=== PATIENT | female | born 1985 | race African-American/Black ===

== ENCOUNTER → 2020-11-24 | Outpatient (CLI) | payer MEDICAID ==
[2015-11-13 15:35] VITALS: BP 103/65
[~2020-11-24] MED LIST: DOCU-109 PO; FLUT100D2 IH; FLUT9.9S NS; LEVO75TA5 PO; NAPR-514 PO; OMEP40CA45 PO; OXYC1TAB19 PO
--- NOTE | 2020-11-24 16:03 | RAD ---
EXAM: Pelvic sonogram. HISTORY: Right ovarian cyst. TECHNIQUE: Sonographic imaging of the pelvis was performed. COMPARISON: None. FINDINGS: The exam is limited due to patient body habitus. The uterus is surgically absent. The left ovary is not seen. No left adnexal mass or cyst is seen. The right ovary is normal in size and demons trates normal blood flow. No pelvic free fluid is seen. IMPRESSION: 1. Limited exam due to patient body habitus. 2. Surgically absent uterus and nonvisualization of the left ovary. 3. Unremarkable right ovary. Electronically signed by: Sravani Guido MD (11/24/2020 4:00 PM) [id number]
== END ==
LOC: US 09:19
PROVIDERS: ATTEND Obstetrics & Gynecology
DX: N83.291 Other ovarian cyst, right side (principal); Z90.710 Acquired absence of both cervix and uterus
CPT/HCPCS: 76856

== ENCOUNTER 2020-12-25 22:01 | Emergency (ER) | payer MEDICAID ==
[~2020-12-25] VITALS: Ht 167.6 cm; Wt 133.6 kg
[2020-12-25 22:20] VITALS: BP 132/74
[2020-12-25] MEDS ORDERED: CETI1TAB7 PO (23:56)
--- NOTE | 2020-12-25 23:57 | ED.ADGEN ---
Past Medical History Past Medical History: Asthma, Bronchitis, CHF, Hypertension, Hypothyroid Past Surgical History: , Hysterectomy, Other Additional Past Surgical Histo: Ovarian cyst removal Smoking Status: Never Smoker Alcohol Use: Occasionally General Adult EDM: Chief Complaint: FOREIGNBODY EAR HPI: HPI: Patient is a 35-year-old female who presents to the emergency room complaining of something in her right ear. Patient states that she thinks a Jewel she states it feels like something is moving around in her air. She has been having ear pressure and sinus pressure for the last several days. She denies any other issues. From her nail popped off and went into her ear. Review of Systems: Review of Systems: Complete ROS is negative unless otherwise documented in HPI Allergies: Allergies: Allergies Coded Allergies Type Severity Reaction Last Updated Verified lactose Allergy Intermediate 11/12/15 Yes topiramate Allergy Intermediate Hives 11/12/15 Yes Physical Exam: PE: General: Awake, alert, NAD. Well Nourished, well hydrated. Cooperative HEENT: Atraumatic, EOMI, PERRL, airway patent, moist oral mucosa, bilateral TMs normal, wax in right ear canal, no foreign body seen Neck: Supple, trachea midline GI: Soft, nondistended, nontender, no masses MSK: No obvious deformities Skin: Warm, dry, intact Neuro: A&O x3, speech NL, sensory and motor grossly intact, no focal deficits Psych: Normal affect, normal mood, not suicidal or homicidal Current Patient Data: Vital Signs: Vital Signs Date Time Temp Pulse Resp B/P (MAP) Pulse Ox O2 Delivery O2 Flow Rate FiO2 12/25/20 22:20 98.5 74 18 132/74 (93) 97 Room Air 98.5 EKG: EKG: [] Heart Score: C/O Chest Pain: N/A Risk Factors: Risk Factors: DM, Current or recent (<one month) smoker, HTN, HLP, family history of CAD, obesity. Risk Scores: Score 0 - 3: 2.5% MACE over next 6 weeks - Discharge Home Score 4 - 6: 20.3% MACE over next 6 weeks - Admit for Clinical Observation Score 7 - 10: 72.7% MACE over next 6 weeks - Early Invasive Strategies Radiology/Procedures: Radiology/Procedures: [] Course & Med Decision Making: Course & Med Decision Making Pertinent Labs and Imaging studies reviewed. (See chart for details) Patient is a 35-year-old female presents to the emergency room with a possible foreign body in her ear. Nail gem was not visualized. Wax was removed and no foreign body was seen. Patient's test results and vitals while in the ED were fully reviewed and discussed with the patient. Patient is stable and at this time does not need admission to the hospital. We have discussed strict return precautions and the importance of following up with their Primary Care Physician. Patient stated understanding and was given an opportunity to ask any questions. Patient is in agreement with plan. Dragon Disclaimer: Dragon Disclaimer: This electronic medical record was generated, in whole or in part, using a voice recognition dictation system. Departure Departure Impression: Primary Impression: Ear pain Disposition: HOME / SELF CARE / HOMELESS Condition: STABLE Referrals: NATA ABURTO MD (PCP) Patient Instructions: Ear Foreign Body Scripts Cetirizine Hcl/Pseudoephedrine (ZYRTEC-D TABLET) 1 Each Tab.er.12h 1 TAB PO BID, #20 TAB Prov: NAHID SHEARER MD 12/25/20 NAHID SHEARER MD Dec 25, 2020 23:57
== END 2020-12-26 | disposition home or self-care (01) ==
LOC: ER 22:01
DX: H92.01 Otalgia, right ear (principal); H61.21 Impacted cerumen, right ear; E03.9 Hypothyroidism, unspecified; I11.0 Hypertensive heart disease with heart failure; I50.9 Heart failure, unspecified; J45.909 Unspecified asthma, uncomplicated; Z91.011 Allergy to milk products; Z88.8 Allergy status to other drugs, medicaments and biological substances
CPT/HCPCS: 69209; 99282

== ENCOUNTER → 2021-01-12 | Outpatient (CLI) | payer MEDICAID ==
[2020-12-25 22:20] VITALS: BP 132/74
[~2021-01-12] MED LIST changes: +CETI1TAB7 PO
--- NOTE | 2021-01-14 13:07 | EEG ---
DATE OF SERVICE: 01/13/2021 HOME POLYSOMNOGRAM REPORT OBJECTIVE: The patient is a 35-year-old female with nighttime headaches that awaken her from sleep, sleepiness, rule out sleep apnea. Height 68 inches, weight 382 pounds, body mass index 58.1, [place] sleep score 7. INTERPRETATION: There are total of 38 respiratory events for an apnea-hypopnea index of 4.3 events per hour of sleep. The minimum oxygen saturation is 87%. No significant cardiac arrhythmias are observed. IMPRESSION: This home sleep study failed to reveal a significant amount of apnea. If clinical suspicion remains high, one could consider an in-lab study. Thank you letting us help with the patient's care. MAXIM/BRYAN DR: Erin TID: [id number] CC: NITIN Watson, Stephanie Ortega MD MTDD
== END ==
LOC: RT 09:25
PROVIDERS: ATTEND Nurse Practitioner Family
DX: G47.19 Other hypersomnia (principal)
CPT/HCPCS: G0399

== ENCOUNTER → 2021-06-10 | Outpatient (CLI) | payer MEDICAID ==
[~2021-06-10] MED LIST changes: -OMEP40CA45 PO; +OMEP40CA7 PO
--- NOTE | 2021-06-10 14:31 | KCIC ---
EXAM: Lumbar spine MRI without contrast. HISTORY: Pain. TECHNIQUE: Multiplanar, multisequence magnetic resonance imaging of the lumbar spine was performed wi thout contrast. COMPARISON: None. FINDINGS: There is no significant listhesis. The vertebral bodies are normal in height. There is mild diffuse decreased T1 marrow signal intensity. This is most commonly due to anemia and female patient of this age. There is no suspicious osseous lesion. There is no fracture. The conus terminates at L1 . At L1-L2, L2-L3, L3-L4 and L4-L5, there is no stenosis. At L5-S1, there is a shallow posterior central disc protrusion superimposed on endplate remodeling. T here is mild right and [id number] left foraminal stenosis. IMPRESSION: 1. Degenerative change at L5-S1, resulting in mild right and [id number] left foraminal stenosis . 2. No acute finding. Electronically signed by: Sravani Guido MD (06/10/2021 2:29 PM) [facility]
--- NOTE | 2021-06-10 14:46 | KCIC ---
Examination: MRI of the left knee without contrast HISTORY: History of left knee pain COMPARISON: None available TECHNIQUE: None available TECHNIQUE: Multiplanar, multisequence MR imaging of the left knee was performed without contrast. FINDINGS: The anterior cruciate ligament, posterior cruciate ligament appears intact. The medial meniscus, late ral meniscus appears intact. The medial, lateral meniscus appears appears intact. The medial collater al ligament appears intact. Lateral collateral ligamentous complex including the fibular collateral l igament, biceps femoris tendon, popliteus tendon appears intact. The extensor mechanism appears intac t. The medial, lateral retinaculum appears intact. Small knee joint effusion. Small leaking popliteal cyst identified. IMPRESSION: 1. No evidence of internal derangement of the knee. 2. Small knee joint effusion with a small leaking popliteal cyst. Electronically signed by: Freddie Orr MD (06/10/2021 2:43 PM) [id number]
== END ==
LOC: KCIC MRI 12:38
PROVIDERS: ATTEND Physician Assistant
DX: M48.07 Spinal stenosis, lumbosacral region (principal); M25.462 Effusion, left knee; M71.22 Synovial cyst of popliteal space [Baker], left knee; G89.29 Other chronic pain
CPT/HCPCS: 72148; 73721